=== PATIENT | female | born 1980 | race Caucasian/White ===

== ENCOUNTER 2017-10-20 18:08 | Emergency (ER) | payer OTHER ==
[2017-10-20 18:19] VITALS: RESP 18
[2017-10-20] MEDS ORDERED: LIDOCAINE VISCOUS 2% 15 ML CUP MUCOUS MEM ONE (19:22)
--- NOTE | 2017-10-20 19:56 | XR ---
EXAMINATION TYPE: XR soft tissue neck DATE OF EXAM: 10/20/2017 COMPARISON: NONE HISTORY: Sore throat TECHNIQUE: 2 views FINDINGS: Epiglottis is normal. Tonsils are within normal limits. Subglottic trachea appears normal. Prevertebral soft tissues appear normal. IMPRESSION: Normal cervical soft tissue exam.
[2017-10-20] MEDS ORDERED: KETOROLAC 60 MG/2 ML VIAL IM STA (20:30)
[2017-10-20] MEDS ORDERED: HYDROcodone/APAP 10-325MG 1 EACH TAB PO ONE (20:30)
--- NOTE | 2017-10-20 20:52 | ED ---
ENT HPI - General Chief complaint: ENT Stated complaint: Sore Throat/Mouth Sores Time Seen by Provider: 10/20/17 18:22 Source: patient Mode of arrival: ambulatory Limitations: no limitations - History of Present Illness Initial comments: 37-year-old female presenting for evaluation of sore throat since Tuesday. She states that she went to an urgent care this week where she had a negative strep swab and was given a prescription for antibiotics. She has been taking the Augmentin as prescribed however her sore throat continues. She's been trying [id number] medications without relief in her symptoms. She states symptoms are worse with eating foods and there is no alleviating factors. There are no other associated symptoms. She denies shortness of breath or sensation of throat closure. - Related Data Home Medications Medication Instructions Recorded Confirmed Amoxic-Pot Clav 500-125 mg 1 tab PO TID 10/20/17 10/20/17 [Augmentin 500-125 mg] Lidocaine Viscous 2% [Xylocaine 10 ml PO Q2H PRN 10/20/17 10/20/17 Viscous] predniSONE 40 mg PO DAILY 10/20/17 10/20/17 Previous Rx's Medication Instructions Recorded HYDROcodone/APAP 5-325MG [[place] 1 - 2 tab PO Q6HR PRN #7 tab 10/20/17 5-325] Ibuprofen [Motrin] 800 mg PO Q6HR #30 tab 10/20/17 Allergies Allergy/AdvReac Type Severity Reaction Status Date / Time No Known Allergies Allergy Verified 10/20/17 18:43 Review of Systems ROS Statement: Those systems with pertinent positive or pertinent negative responses have been documented in the HPI. ROS Other: All systems not noted in ROS Statement are negative. Constitutional: Denies: fever, chills, night sweats Eyes: Denies: eye pain, vision change ENT: Reports: throat pain. Denies: ear pain, dental pain, epistaxis, congestion Respiratory: Denies: cough, dyspnea Cardiovascular: Denies: chest pain, palpitations Endocrine: Denies: fatigue, polydipsia, polyuria Gastrointestinal: Denies: abdominal pain, nausea, vomiting Genitourinary: Denies: urgency, dysuria Musculoskeletal: Denies: back pain, arthralgia, myalgia Skin: Denies: rash, lesions Neurological: Denies: headache, weakness Psychiatric: Denies: anxiety, depression Hematological/Lymphatic: Denies: easy bleeding, easy bruising Past Medical History Past Medical History: No Reported History History of Any Multi-Drug Resistant Organisms: None Reported Past Surgical History: No Surgical Hx Reported Past Psychological History: No Psychological Hx Reported Smoking Status: Current every day smoker Past Alcohol Use History: Occasional Past Drug Use History: None Reported General Exam Limitations: no limitations General appearance: alert, in no apparent distress Head exam: Present: atraumatic, normocephalic, normal inspection Eye exam: Present: normal appearance, PERRL, EOMI. Absent: scleral icterus, conjunctival injection, periorbital swelling ENT exam: Present: mucous membranes moist, other (erythematous posterior oropharynx). Absent: normal exam, normal oropharynx Neck exam: Present: normal inspection. Absent: tenderness, meningismus, lymphadenopathy Respiratory exam: Present: normal lung sounds bilaterally. Absent: respiratory distress, wheezes, rales, rhonchi, stridor Cardiovascular Exam: Present: regular rate, normal rhythm, normal heart sounds. Absent: systolic murmur, diastolic murmur, rubs, gallop, clicks GI/Abdominal exam: Present: soft, normal bowel sounds. Absent: distended, tenderness, guarding, rebound, rigid Rectal exam: Present: deferred Extremities exam: Present: normal inspection, full ROM, normal capillary refill. Absent: tenderness, pedal edema, joint swelling, calf tenderness Back exam: Present: normal inspection Neurological exam: Present: alert, oriented X3, CN II-XII intact Psychiatric exam: Present: normal affect, normal mood Skin exam: Present: warm, dry, intact, normal color. Absent: rash Course Vital Signs 10/20/17 18:14 Temperature 99.0 F Pulse Rate 90 Respiratory 18 Rate Blood Pressure 145/90 O2 Sat by Pulse 99 Oximetry Medical Decision Making - Medical Decision Making 37-year-old female presented for evaluation of sore throat since Tuesday. She is in the middle of an Augmentin antibiotic course and states that she was also given a prednisone burst. On physical examination she is in no apparent distress however she states that she has sore throat and on inspection she has an erythematous oropharynx without occlusion of the airway. She has tenderness externally to the neck however on the minor lymphadenopathy is noted. Remainder of the physical exam is benign. Rapid strep is negative and culture sent. Soft tissue x-ray shows no acute abnormalities. Patient given by mouth lidocaine and had some improvement in her symptoms. She was further given IM Toradol and [place]. Informed of all results and that should be discharged with instructions to follow with her primary care physician and she is further given return instructions. The patient acknowledged an understanding of all information provided and agreed with this plan of care. - Lab Data Lab Results 10/20/17 Range/Units 18:39 Group A Strep Rapid Negative (Negative) Disposition Clinical Impression: Pharyngitis, Sore throat Disposition: HOME SELF-CARE Condition: Stable Instructions: Pharyngitis (ED), Tonsillitis (ED) Additional Instructions: Please use medication as discussed. Please follow up with family doctor if symptoms have not improved over the next two days. Please return to the emergency room if your symptoms increase or worsen or for any other concerns. Prescriptions: HYDROcodone/APAP 5-325MG [[place] 5-325] 1 - 2 tab PO Q6HR PRN #7 tab PRN Reason: Analgesia Ibuprofen [Motrin] 800 mg PO Q6HR #30 tab Referrals: None,Stated [Primary Care Provider] - 1-2 days Time of Disposition: 20:54
[2017-10-20 21:16] VITALS: BP 123/84; PULSE 85; TEMP 98.3
== END 2017-10-20 21:15 | disposition home or self-care (01) ==
LOC: EC 18:08
DX: J02.9 Acute pharyngitis, unspecified (principal); F17.200 Nicotine dependence, unspecified, uncomplicated; Z79.51 Long term (current) use of inhaled steroids
CPT/HCPCS: 87081; 87430; 70360; 99283; 96372; J1885

== ENCOUNTER → 2020-10-21 | Outpatient (CLI) | payer OTHER | END | disposition home or self-care (01) | LOC: LABWHC1 15:42 | PROVIDERS: ATTEND Family Medicine | DX: Z20.828 Contact with and (suspected) exposure to other viral communicable diseases (principal) | CPT/HCPCS: U0003; C9803 ==

== ENCOUNTER → 2021-03-17 | Outpatient (CLI) | payer OTHER | END | disposition home or self-care (01) | LOC: LABWHC1 15:41 | PROVIDERS: ATTEND Family Medicine | DX: Z20.822 Contact with and (suspected) exposure to COVID-19 (principal) | CPT/HCPCS: U0003; C9803 ==

== ENCOUNTER → 2021-03-31 | Outpatient (CLI) | payer OTHER ==
--- NOTE | 2021-03-31 17:28 | XR ---
EXAMINATION TYPE: XR chest 1V DATE OF EXAM: 03/31/2021 COMPARISON: NONE HISTORY: Cough. TECHNIQUE: Single frontal view of the chest is obtained. FINDINGS: There is no focal air space opacity, pleural effusion, or pneumothorax seen. The cardiac silhouette size is within normal limits. The osseous structures are intact. IMPRESSION: No acute process.
== END | disposition home or self-care (01) ==
LOC: RADXRMAIN 16:57
PROVIDERS: ATTEND Nurse Practitioner Family
DX: R05 Cough (principal)
CPT/HCPCS: 71045

== ENCOUNTER → 2021-04-14 | Outpatient (CLI) | payer OTHER ==
[2021-04-14 19:05] LABS: Basophils # (A) 0.05 X 10*3/uL (0.00-0.10); Basophils % (A) 0.5 %; Eosinophils # (A) 0.13 X 10*3/uL (0.04-0.35); Eosinophils % (A) 1.2 %; HCT 44.3 % (37.2-46.3); HGB 14.4 g/dL (12.0-15.0); Lymphocytes # (A) 1.65 X 10*3/uL (0.90-5.00); Lymphocytes % (A) 15.5 %; MCHC 32.5 g/dL (32.0-37.0); MCV 95.3 fL (80.0-97.0); Mean Platelet Volume 12.1 fL (9.5-12.2); Monocytes # (A) 0.97 X 10*3/uL (0.20-1.00); Monocytes % (A) 9.1 %; Neutrophils # (A) 7.81 X 10*3/uL (1.80-7.70); Neutrophils % (A) 73.2 %; Platelet Count 270 X 10*3/uL (140-440); RBC 4.65 X 10*6/uL (4.10-5.20); RDW 12.8 % (11.5-14.5); WBC 10.66 X 10*3/uL (4.50-10.00)
[2021-04-14 21:04] LABS: ALT 15 U/L (8-44); AST 16 U/L (13-35); African American GFR (CKD) 106.1 (60.0-200.0); Alkaline Phosphatase 50 U/L (41-126); C Reactive Protein <0.4 mg/dL (0.0-0.8); Calcium 9.4 mg/dL (8.7-10.3); Chloride 106 mmol/L (96-109); Glucose 127 mg/dL (70-110); LDH 152 U/L (120-246); Non-African American GFR(CKD) 91.6 (60.0-200.0); Potassium 4.8 mmol/L (3.5-5.5); Sodium 136 mmol/L (135-145); Total Bilirubin 0.3 mg/dL (0.3-1.2); Total Protein 6.8 g/dL (6.2-8.2)
[2021-04-14 21:14] LABS: Ferritin 19.5 ng/mL (10.0-291.0)
== END | disposition home or self-care (01) ==
LOC: LABWHC1 14:24
PROVIDERS: ATTEND Family Medicine
DX: R50.9 Fever, unspecified (principal)
CPT/HCPCS: 36415; 80053; 82728; 83615; 84145; 85025; 85379; 86140

== ENCOUNTER → 2021-04-20 | Outpatient (CLI) | payer OTHER ==
--- NOTE | 2021-04-21 08:58 | MM ---
Reason for exam: screening (asymptomatic). Baseline mammogram. History: Family history of breast cancer in paternal grandmother and breast cancer in maternal grandmother at age 60. Physical Findings: Nurse did not find any significant physical abnormalities on exam. MG Screening Mammo w CAD Bilateral CC and MLO view(s) were taken. XCCL view(s) were taken of the right breast. The breast tissue is extremely dense which could obscure a lesion on mammography. These results were verbally communicated with the patient and result sheet given to the patient on 04/20/21. ASSESSMENT: Benign, BI-RAD 2 RECOMMENDATION: Routine screening mammogram of both breasts in 1 year.
== END | disposition home or self-care (01) ==
LOC: RADMAMWWP 15:02
PROVIDERS: ATTEND Family Medicine
DX: Z12.31 Encounter for screening mammogram for malignant neoplasm of breast (principal); Z80.3 Family history of malignant neoplasm of breast
CPT/HCPCS: 77067

== ENCOUNTER → 2021-06-02 | Outpatient (CLI) | payer OTHER ==
--- NOTE | 2021-06-02 10:07 | CT ---
EXAMINATION TYPE: CT chest w con DATE OF EXAM: 06/02/2021 COMPARISON: NONE HISTORY: Cough, shortness of breath, difficulty breathing CT DLP: 177.3 mGycm. Automated Exposure Control for Dose Reduction was Utilized. TECHNIQUE: CT scan of the thorax is performed following with IV Contrast, patient injected with 100 mL of Isovue 300. FINDINGS: LUNGS: The lungs are grossly clear, there is no concerning parenchymal mass or nodule identified. No suspicious focal consolidation or groundglass opacity. There is no pleural effusion or pneumothorax seen. The tracheobronchial tree is patent. MEDIASTINUM: There are no greater than 1 cm hilar or mediastinal lymph nodes. No cardiomegaly or pe ricardial effusion is seen. OTHER: Slight scoliotic curvature or positioning upper thoracic spine. IMPRESSION: No acute or chronic pulmonary process.
== END | disposition home or self-care (01) ==
LOC: RADCTMAIN 08:03
PROVIDERS: ATTEND Family Medicine
DX: R05 Cough (principal); R06.02 Shortness of breath; R06.89 Other abnormalities of breathing
CPT/HCPCS: 71260; Q9967

== ENCOUNTER 2024-09-07 05:43 | Day surgery (SDC) | payer SELFPAY ==
[2024-09-06 09:06] VITALS: BMI 22.6
[2024-09-07] MEDS ORDERED: SCOPOLAMINE 1 MG/72 HR PATCH TRANSDERM ONE (05:56)
[2024-09-07] MEDS: IV FLUID CONTINUATION 1,000 ML IV ONE (06:23)
[2024-09-07] MEDS: LACTATED RINGERS 1,000 ML IV SCH (06:37)
[2024-09-07] MEDS: DEXAMETHASONE SOD PHOSPHATE 4 MG/ML 1 ML VIAL IV ONE (06:38)
[2024-09-07] MEDS: ONDANSETRON 4 MG/2 ML VIAL IVP ONE (06:38)
[2024-09-07] MEDS: fentaNYL (PF) 50 MCG/ML 2 ML AMP IVP STA (06:49)
[2024-09-07] MEDS: MIDAZOLAM 2 MG/2 ML VIAL IV PRN (06:49)
[2024-09-07] MEDS ORDERED: MIDAZOLAM 2 MG/2 ML VIAL ONE (07:25)
[2024-09-07] MEDS ORDERED: PROPOFOL 10 MG/ML 20 ML VIAL IV ONE (07:25)
[2024-09-07] MEDS ORDERED: ROPIVACAINE 5 MG/ML 30 ML VIAL ONE (07:25)
[2024-09-07] MEDS ORDERED: SODIUM CHLORIDE 0.9% (PF) 10 ML VIAL ONE (07:25)
[2024-09-07] MEDS ORDERED: fentaNYL (PF) 50 MCG/ML 2 ML AMP ONE (07:25)
[2024-09-07] MEDS ORDERED: LIDOCAINE 1% INJ 10MG/ML (20 ML MDV) ONE (07:25)
[2024-09-07] MEDS: ceFAZolin 1,000 MG in SODIUM CHLORIDE 0.9% 1,000 ML IRRIGATION ONE (07:30)
--- NOTE | 2024-09-07 08:06 | P.ANPRN ---
Procedure Note - Anesthesia - Nerve Block Performed Right Popliteal Single Time Out Performed: Yes (0649) Date of Procedure: 09/07/24 Procedure Start Time: 06:50 Procedure Stop Time: 06:54 Location of Patient: PreOp Indication: Acute Post-Operative Pain, Requested by Surgeon Specifically requested for management of pain by DrRoberto: Porter Carson Sedation Type: Sedate with meaningful contact maintained Preparation: Sterile Prep Position: Left Lateral Catheter: None Needle Types: Pajunk Needle Gauge: 21 Ultrasound used to visualize needle placement: Yes Ultrasound used to observe medication spread: Yes Injectate: 0.5% Ropivacaine (see comment for volume) (15cc+10cc nacl pf) Blood Aspirated: No Pain Paresthesia on Injection Noted: No Resistance on Injection: Normal Image Stored and Saved: Yes Events: Uneventful and Well Tolerated
--- NOTE | 2024-09-07 08:07 | P.ANPRN ---
Procedure Note - Anesthesia - Nerve Block Performed Right Adductor Canal Single Time Out Performed: Yes (0649) Date of Procedure: 09/07/24 Procedure Start Time: 06:55 Procedure Stop Time: 06:59 Location of Patient: PreOp Indication: Acute Post-Operative Pain, Requested by Surgeon Specifically requested for management of pain by DrRoberto: Porter Carson Sedation Type: Sedate with meaningful contact maintained Preparation: Sterile Prep Position: Supine Catheter: None Needle Types: Pajunk Needle Gauge: 21 Ultrasound used to visualize needle placement: Yes Ultrasound used to observe medication spread: Yes Injectate: 0.5% Ropivacaine (see comment for volume) (15cc +10cc nacl pf) Blood Aspirated: No Pain Paresthesia on Injection Noted: No Resistance on Injection: Normal Image Stored and Saved: Yes Events: Uneventful and Well Tolerated
[2024-09-07] MEDS: HYDROmorphone 0.5 MG/0.5 ML SYRINGE IVP PRN (08:55)
--- NOTE | 2024-09-07 09:02 | P.OP ---
Date of Procedure: 09/07/24 Preoperative Diagnosis: 1. Displaced lateral malleolar fracture right ankle 2. Ruptured syndesmosis right ankle 3. Possible deltoid ligament rupture right ankle Postoperative Diagnosis: 1. Displaced lateral malleolar fracture right ankle 2. Ruptured syndesmosis right ankle Procedure(s) Performed: 1. Open reduction with internal fixation right lateral malleolar fracture 2. Open reduction internal fixation right syndesmotic rupture Implants: Mcdaniels anatomic lateral malleolar plate with locking and nonlocking screws Arthgreg booker Anesthesia: JOSE Surgeon: Porter Carson Estimated Blood Loss (ml): 2 Pathology: none sent Condition: stable Disposition: PACU Description of Procedure: Prior to the patient being brought to the operating room, anesthesia administered a nerve block on the right lower extremity. The patient was brought into the operative room and placed on table in supine position. Timeout was taken to confirm correct patient identifiers, correct laterality of surgery, and correct procedure. Once all staff in the room were in agreement with the timeout, the patient was induced and placed under general anesthesia. A well- padded tourniquet was placed on the right thigh and a wedge underneath the right hip to internally rotate the right leg. The right leg was then prepped and draped in usual manner. The leg was exsanguinated with an Esmarch bandage and then the tourniquet was inflated to 250 mmHg. Inches directed over the lateral malleolus where a straight linear incision was made along the midline. The incision was deepened under the subcutaneous tissue careful to identify, avoid, and retract any neurovascular structures and cauterize any bleeding vessels. Dissection was carried down to level of the periosteum. A linear periosteal incision was madetissues were reflected anteriorly and posteriorly to expose the fracture. The soft tissue and hematoma were evacuated from between the fracture fragments. Bone reduction forceps were utilized to rotate and bring the fracture back into alignment. A Mcdaniels precontoured lateral malleolar plate was then positioned and adjusted under fluoroscopy until it was aligned appropriately. The plate was then temporarily fixated. A nonlocking screw and a Locking screw were placed in the most proximal 2 holes of the plate. Distal locking screws were then placed into the lateral malleolus. Drilling for the screws is done under direct fluoroscopic visualization so that the drill bit did not enter the lateral gutter of the ankle joint. The distal screw was a compression screw to contour the plate and the other 2 screws were locking screws. Fluoroscopic imaging showed that the plate was properly aligned and the fracture well reduced. Under live fluoroscopic visualization external rotation and eversion of the ankle were done to assess the syndesmosis. It was noted that there was excessive motion of the syndesmosis. the decision was made for syndesmotic fixation and stabilization. Through the appropriate hole in the plate, a drill hole was made from lateral to medial, with slight anterior angulation through all cortices. An Arthrex tight rope was inserted until the medial button was clear of the cortex of the tibia. The button was deployed manipulated until late flat against the medial side of the tibia. The overnight cashier was removed and then the ankle held in maximal dorsiflexed position, and the lateral button was tightened against the plate. Stress testing was performed again under fluoroscopy, and it showed that there was no instability of syndesmosis and no abnormal gapping of the medial gutter. The wound is then thoroughly irrigated with antibiotic saline. Deep closure was done with 2-0 Vicryl. Subcu closure was done with 4-0 Monocryl. Skin closure was done with 4-0 Stratafix in a running subcuticular manner. Dermal glue and steri-strips were applied over the incision. There was a large medial wound that was irrigatd and covered with a silver impregnated foam dressing. An Arthrex jumpstart dressing was placed over the lateral incision and then a bulky dry dressings applied to the right ankle. The tourniquet was released and capillary refill return to all digits on the right foot. Then the patient was placed in a well-padded, well molded posterior mold/sugar tong splint. The ankle was held in neutral dorsiflexion and slight inversion as it dried. Once the splint was dried, anesthesia was reversed and the patient was taken recovery with vital signs stable.
--- NOTE | 2024-09-07 09:04 | FL ---
EXAMINATION TYPE: FL guidance operating room, XR ankle complete RT DATE OF EXAM: 09/07/2024 Comparison: No prior is available. Clinical History: 43-year-old female pain after ankle injury, ORIF ANKLE IN OR Findings: 3 intraoperative images are provided. These show lateral plate and screw fixation of the distal fibul a as well as transsyndesmotic tight rope fixation. Ankle mortise appears congruent and alignment is g rossly anatomic. FLUOROSCOPY Fluoroscopy time of 37 seconds was used during right ankle ORIF. 3 image/s document/s the procedure. .80955 Gycm2 DAP dose Impression: Intraoperative imaging during placement of distal fibular plate and screw fixation as well as transsy ndesmotic tight rope fixation. Gross anatomic alignment. [facility], , 09/07/2024 9:02 AM
[2024-09-07 09:06] VITALS: RESP 14; TEMP 97.2
[2024-09-07 10:01] VITALS: BP 133/87; PULSE 84
== END 2024-09-07 10:28 | disposition home or self-care (01) ==
LOC: OR 05:43
PROVIDERS: ATTEND Podiatrist
CPT/HCPCS: 64445; 64447; 81025

== ENCOUNTER 2024-10-24 15:15 | Observation (INO) | payer OTHER ==
--- NOTE | 2024-10-24 15:53 | ED ---
Recheck HPI - General Chief Complaint: Recheck/Abnormal Lab/Rx Stated Complaint: R leg infection Time Seen by Provider: 10/24/24 15:25 Source: patient, RN notes reviewed, old records reviewed Mode of arrival: ambulatory Limitations: no limitations - History of Present Illness Initial Comments: This is a 44-year-old female to the ER for right lower extremity pain increasing ulcer pain and swelling foot swelling foot pain with redness and swelling. Kasandra whitt has recent history of ankle surgery and had gradual healing and improved pain until last week where the pain and swelling increased, patient's ulcer does appear to be continually improving over the right ankle but she does feel feverish MD Complaint: wound re-check -: week(s) Returns Today for: Called Because of Abnormal Lab/Test, needs IV antibiotics, persistent/worsening pain related to initial visit Symptoms Since Prior Visit: worsening pain, worsening swelling, worsening redness, fever Associated Symptoms: none Treatments Prior to Arrival: other - Related Data Home Medications Medication Instructions Recorded Confirmed diphenhydrAMINE HCL [Benadryl] 25 mg PO DAILY 09/06/24 10/24/24 Previous Rx's Medication Instructions Recorded Doxycycline Hyclate 100 mg PO BID #20 tab 10/25/24 HYDROcodone/APAP 5-325MG [[place] 1 tab PO Q4HR PRN #30 tab 10/25/24 5-325] Nicotine 21Mg/24Hr Patch [Habitrol] 1 patch TRANSDERM DAILY #3 patch 10/25/24 Allergies Allergy/AdvReac Type Severity Reaction Status Date / Time No Known Allergies Allergy Verified 10/24/24 16:09 Review of Systems ROS Statement: Those systems with pertinent positive or pertinent negative responses have been documented in the HPI. ROS Other: All systems not noted in ROS Statement are negative. 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 History of Any Multi-Drug Resistant Organisms: None Reported Past Surgical History: Orthopedic Surgery Past Anesthesia/Blood Transfusion Reactions: No Reported Reaction Past Psychological History: No Psychological Hx Reported Smoking Status: Current every day smoker Past Alcohol Use History: Rare Past Drug Use History: Marijuana - Past Family History Mother Family Medical History: No Reported History General Exam Limitations: no limitations General appearance: alert, in no apparent distress, anxious Head exam: Present: atraumatic, normocephalic, normal inspection Eye exam: Present: normal appearance, PERRL, EOMI. Absent: scleral icterus, conjunctival injection, periorbital swelling ENT exam: Present: normal exam, mucous membranes moist Neck exam: Present: normal inspection. Absent: tenderness, meningismus, lymphadenopathy Respiratory exam: Present: normal lung sounds bilaterally. Absent: respiratory distress, wheezes, rales, rhonchi, stridor Cardiovascular Exam: Present: normal rhythm, tachycardia, normal heart sounds. Absent: systolic murmur, diastolic murmur, rubs, gallop, clicks GI/Abdominal exam: Present: soft, normal bowel sounds. Absent: distended, tenderness, guarding, rebound, rigid Extremities exam: Present: normal inspection, full ROM, normal capillary refill. Absent: tenderness, pedal edema, joint swelling, calf tenderness Back exam: Present: normal inspection Neurological exam: Present: alert, oriented X3, CN II-XII intact Psychiatric exam: Present: normal affect, normal mood Skin exam: Present: warm, dry, intact, normal color. Absent: rash Course Vital Signs 10/24/24 10/24/24 15:21 18:15 Temperature 98.6 F 98.1 F Pulse Rate 131 H 108 H Respiratory 20 22 Rate Blood Pressure 153/94 148/89 O2 Sat by Pulse 99 100 Oximetry - Reevaluation(s) Reevaluation #1: 10/24/24 16:07 Records reviewed Reevaluation #2: 10/24/24 17:41 Patient has improved pain control here in the ER Reevaluation #3: 10/24/24 17:41 Patient informed of results and questions answered Reevaluation #4: Was pt. sent in by a medical professional or institution (, PA, SPRING UP SUPERVISOR, urgent care, hospital, or care home...) When possible be specific @ -no Did you speak to anyone other than the patient for history (EMS, parent, family, police, friend...)? What history was obtained from this source @ -no Did you review nursing and triage notes (agree or disagree)? Why? @ -agree Are old charts reviewed (outside hosp., previous admission, EMS record, old EKG, old radiological studies, urgent care reports/EKG's, care home records)? Report findings @ -yes Differential Diagnosis (chest pain, altered mental status, abdominal pain women, abdominal pain men, vaginal bleeding, weakness, fever, dyspnea, syncope, headache, dizziness, GI bleed, back pain, seizure, CVA, palpatations, mental health, musculoskeletal)? @ -prior EKG interpreted by me (3pts min.). @ -no X-rays interpreted by me (1pt min.). @ -yes negative for acute disease CT interpreted by me (1pt min.). @ -no U/S interpreted by me (1pt. min.). @ -yes negative for acute disease What testing was considered but not performed or refused? (CT, X-rays, U/S, labs)? Why? @ -none What meds were considered but not given or refused? Why? @ -none Did you discuss the management of the patient with other professionals (professionals i.e. , PA, SPRING UP SUPERVISOR, lab, RT, psych nurse, social media marketing analyst, conventional mortgage underwriter, teacher, supply requirements officer, rn case management)? Give summary @ -no Was smoking cessation discussed for >3mins.? @ -no Was critical care preformed (if so, how long)? @ -no Were there social determinants of health that impacted care today? How? (Homelessness, low income, unemployed, alcoholism, drug addiction, transportation, low edu. Level, literacy, decrease access to med. care, [place] [facility], rehab)? @ -none Was there de-escalation of care discussed even if they declined (Discuss DNR or withdrawal of care, Hospice)? DNR status @ -no What co-morbidities impacted this encounter? (DM, HTN, Smoking, COPD, CAD, Cancer, CVA, ARF, Chemo, Hep., AIDS, mental health diagnosis, sleep apnea, morbid obesity)? @ -none Was patient admitted / discharged? Hospital course, mention meds given and route, prescriptions, significant lab abnormalities, going to OR and other pertinent info. @ - 44 female with postoperative pain and infection, patient will be admitted for IV antibiotics Admitted Undiagnosed new problem with uncertain prognosis? @ -no Drug Therapy requiring intensive monitoring for toxicity (Heparin, Nitro, Insulin, Cardizem)? @ -no Were any procedures done? @ -no Diagnosis/symptom? @ -Ankle infection cellulitis Acute, or Chronic, or Acute on Chronic? @ -Acute Uncomplicated (without systemic symptoms) or Complicated (systemic symptoms)? @ -Complicated Side effects of treatment? @ -no Exacerbation, Progression, or Severe Exacerbation? @ -exacerbation Poses a threat to life or bodily function? How? (Chest pain, USA, OR, pneumonia, PE, COPD, DKA, ARF, appy, cholecystitis, CVA, Diverticulitis, Homicidal, Suicidal, threat to staff... and all critical care pts) @ -yes with significant postoperative infection Reevaluation #5: Differential Fever: Pneumonia, viral URI, endocarditis, myocarditis, pericarditis, otitis, sinusitis, peritonsillar Abscess, retropharyngeal Abscess, epiglottitis, perito nitis, appendicitis, Keri cystitis, diverticulitis, hepatitis, colitis, UTI, PID, TOA, pyelonephritis, prostatitis, epididymitis, meningitis, encephalitis, pulmonary embolism, CVA, thyroid storm, pancreatitis, adrenal crisis, cavernous sinus thrombosis, this is not meant to be an all-inclusive list. - Consultations Consultation #1: With [facility] to admit this patient Medical Decision Making - Medical Decision Making 44 female with postoperative pain and infection, patient will be admitted for IV antibiotics - Lab Data Result diagrams: 10/25/24 08:16 10/25/24 08:16 Lab Results 10/24/24 10/24/24 10/24/24 Range/Units 16:35 16:35 16:35 WBC 10.8 H (3.8-10.6) k/uL RBC 4.39 (3.80-5.40) m/uL Hgb 12.4 (11.4-16.0) gm/dL Hct 39.0 (34.0-46.0) % MCV 88.9 (80.0-100.0) fL MCH 28.3 (25.0-35.0) pg MCHC 31.8 (31.0-37.0) g/dL RDW 14.8 (11.5-15.5) % Plt Count 308 (150-450) k/uL MPV 9.1 Neutrophils % 74 % Lymphocytes % 17 % Monocytes % 5 % Eosinophils % 2 % Basophils % 0 % Neutrophils # 8.0 H (1.3-7.7) k/uL Lymphocytes # 1.8 (1.0-4.8) k/uL Monocytes # 0.5 (0-1.0) k/uL Eosinophils # 0.2 (0-0.7) k/uL Basophils # 0.0 (0-0.2) k/uL PT 10.7 (10.0-12.5) sec INR 1.0 (<1.2) APTT 23.8 (22.0-30.0) sec Sodium (137-145) mmol/L Potassium (3.5-5.1) mmol/L Chloride (98-107) mmol/L Carbon Dioxide (22-30) mmol/L Anion Gap mmol/L BUN (7-17) mg/dL Creatinine (0.52-1.04) mg/dL Est GFR (CKD-EPI)AfAm (>60 ml/min/1.73 sqM) Est GFR (CKD-EPI)NonAf (>60 ml/min/1.73 sqM) Glucose (74-99) mg/dL Plasma Lactic Acid German 0.8 (0.7-2.0) mmol/L Calcium (8.4-10.2) mg/dL Phosphorus (2.5-4.5) mg/dL Magnesium (1.6-2.3) mg/dL Total Bilirubin (0.2-1.3) mg/dL AST (14-36) U/L ALT (4-34) U/L Alkaline Phosphatase (38-126) U/L Troponin I (0.000-0.034) ng/mL C-Reactive Protein (<1.0) mg/dL Total Protein (6.3-8.2) g/dL Albumin (3.5-5.0) g/dL Salicylates mg/dL Acetaminophen ug/mL Serum Alcohol mg/dL 10/24/24 10/24/24 Range/Units 16:35 17:03 WBC (3.8-10.6) k/uL RBC (3.80-5.40) m/uL Hgb (11.4-16.0) gm/dL Hct (34.0-46.0) % MCV (80.0-100.0) fL MCH (25.0-35.0) pg MCHC (31.0-37.0) g/dL RDW (11.5-15.5) % Plt Count (150-450) k/uL MPV Neutrophils % % Lymphocytes % % Monocytes % % Eosinophils % % Basophils % % Neutrophils # (1.3-7.7) k/uL Lymphocytes # (1.0-4.8) k/uL Monocytes # (0-1.0) k/uL Eosinophils # (0-0.7) k/uL Basophils # (0-0.2) k/uL PT (10.0-12.5) sec INR (<1.2) APTT (22.0-30.0) sec Sodium 135 L (137-145) mmol/L Potassium 3.7 (3.5-5.1) mmol/L Chloride 110 H (98-107) mmol/L Carbon Dioxide 22 (22-30) mmol/L Anion Gap 3 mmol/L BUN 11 (7-17) mg/dL Creatinine 0.54 (0.52-1.04) mg/dL Est GFR (CKD-EPI)AfAm >90 (>60 ml/min/1.73 sqM) Est GFR (CKD-EPI)NonAf >90 (>60 ml/min/1.73 sqM) Glucose 85 (74-99) mg/dL Plasma Lactic Acid German (0.7-2.0) mmol/L Calcium 8.4 (8.4-10.2) mg/dL Phosphorus 2.5 (2.5-4.5) mg/dL Magnesium 1.7 (1.6-2.3) mg/dL Total Bilirubin 0.3 (0.2-1.3) mg/dL AST 20 (14-36) U/L ALT 15 (4-34) U/L Alkaline Phosphatase 64 (38-126) U/L Troponin I <0.012 (0.000-0.034) ng/mL C-Reactive Protein 1.9 H (<1.0) mg/dL Total Protein 6.0 L (6.3-8.2) g/dL Albumin 3.5 (3.5-5.0) g/dL Salicylates <1.0 mg/dL Acetaminophen <10.0 ug/mL Serum Alcohol <10 mg/dL - EKG Data -: EKG Interpreted by Me (EKG is sinus 99 MD 142 QRS 99 QTc 414) - Radiology Data Radiology results: report reviewed (Ultrasound right lower extremity negative for DVT, x-ray negative for acute traumatic injury), image reviewed Disposition Clinical Impression: Postoperative infection, Cellulitis of right foot, Foot ulcer, right Disposition: ADMITTED IP TO THIS HOSP Condition: Fair Is patient prescribed a controlled substance at d/c from ED?: No Time of Disposition: 17:40
[2024-10-24] MEDS ORDERED: VANCOMYCIN IV PER PHARMACY 1 EACH MISC MISCELLANE PRN (15:55)
[2024-10-24] MEDS: ONDANSETRON 4 MG/2 ML VIAL IVP STA (16:41)
[2024-10-24] MEDS: MORPHINE SULFATE 4 MG/ML SYRINGE IV STA (16:42)
[2024-10-24] MEDS: SODIUM CHLORIDE 0.9% 1,000 ML IV STA ×2 (16:43→18:03)
[2024-10-24 16:47] LABS: Basophils % (A) 0 %; Eosinophils # (A) 0.2 k/uL (0-0.7); Eosinophils % (A) 2 %; HGB 12.4 gm/dL (11.4-16.0); Lymphocytes # (A) 1.8 k/uL (1.0-4.8); Lymphocytes % (A) 17 %; MCH 28.3 pg (25.0-35.0); MCHC 31.8 g/dL (31.0-37.0); MCV 88.9 fL (80.0-100.0); Mean Platelet Volume 9.1; Monocytes # (A) 0.5 k/uL (0-1.0); Monocytes % (A) 5 %; Neutrophils % (A) 74 %; Platelet Count 308 k/uL (150-450); RBC 4.39 m/uL (3.80-5.40); RDW 14.8 % (11.5-15.5); WBC 10.8 k/uL (3.8-10.6)
[2024-10-24 16:59] LABS: Partial Thromboplastin Time 23.8 sec (22.0-30.0); Prothrombin Time 10.7 sec (10.0-12.5)
[2024-10-24] MEDS: HYDROmorphone 1 MG/ML 1 ML SYRINGE IVP STA (17:02)
[2024-10-24] MEDS: LORazepam 2 MG/ML INJ IV STA (17:02)
[2024-10-24] MEDS ORDERED: NALOXONE 0.4 MG/ML 1 ML VIAL IV PRN (17:39)
[2024-10-24] MEDS ORDERED: ONDANSETRON 4 MG/2 ML VIAL IVP PRN (17:39)
[2024-10-24 18:04] LABS: ALT 15 U/L (4-34); AST 20 U/L (14-36); Acetaminophen <10.0 ug/mL; African American GFR (CKD) >90 (>60 ml/min/1.73 sqM); Albumin 3.5 g/dL (3.5-5.0); Alcohol <10 mg/dL; Alkaline Phosphatase 64 U/L (38-126); Anion Gap 3 mmol/L; Blood Urea Nitrogen 11 mg/dL (7-17); C Reactive Protein 1.9 mg/dL (<1.0); Calcium 8.4 mg/dL (8.4-10.2); Carbon Dioxide 22 mmol/L (22-30); Chloride 110 mmol/L (98-107); Glucose 85 mg/dL (74-99); Magnesium 1.7 mg/dL (1.6-2.3); Non-African American GFR(CKD) >90 (>60 ml/min/1.73 sqM); Phosphorus 2.5 mg/dL (2.5-4.5); Potassium 3.7 mmol/L (3.5-5.1); Salicylate <1.0 mg/dL; Sodium 135 mmol/L (137-145); Total Bilirubin 0.3 mg/dL (0.2-1.3)
[2024-10-24] MEDS: SODIUM CHLORIDE 0.9% 1,000 ML IV SCH (18:11)
[2024-10-24] MEDS: VANCOMYCIN 1,250 MG in SODIUM CHLORIDE 0.9% 250 ML IVPB STA (18:14)
--- NOTE | 2024-10-24 18:19 | XR ---
EXAMINATION TYPE: XR ankle complete RT DATE OF EXAM: 10/24/2024 6:03 PM COMPARISON: None CLINICAL INDICATION: Female, 44 years old with history of pain; [facility] TECHNIQUE: XR ankle complete RT; ankle is imaged in frontal, lateral and oblique projections. FINDINGS/IMPRESSION: Soft tissue edema around the ankle with hardware in place. Hardware appears intact. Syndesmotic ancho r is in place. No additional acute fractures definitively visualized. Correlate for cellulitis. [facility], , 10/24/2024 6:16 PM
--- NOTE | 2024-10-24 18:52 | US ---
EXAMINATION TYPE: US venous doppler duplex LE RT DATE OF EXAM: 10/24/2024 6:20 PM COMPARISON: NONE CLINICAL INDICATION: Female, 44 years old with history of pain; Patient states right leg pain after c ar accident that occurred a few weeks ago. No hx dvt. Patient not on thinners, TECHNIQUE: The lower extremity deep venous system is examined utilizing real time linear array sonog vangie with graded compression, color doppler sonography, and spectral doppler. SIDE PERFORMED: Right FINDINGS: VESSELS IMAGED: Common Femoral Vein Deep Femoral Vein Greater Saphenous Vein * Femoral Vein Popliteal Vein Small Saphenous Vein * Proximal Calf Veins (* superficial vessels) Right Leg: Negative for DVT, Color Doppler imaging shows patency of the vessels. Spectral waveforms are within normal limits. Distal femoral vein compression deferred due to patient pain IMPRESSION: No ultrasound evidence for deep venous thrombosis. [facility], , 10/24/2024 6:49 PM
[2024-10-24] MEDS: HYDROmorphone 1 MG/ML 1 ML SYRINGE IVP PRN (19:04)
[2024-10-24] MEDS: LORazepam 0.5 MG TAB PO PRN (20:52)
[2024-10-24] MEDS: NICOTINE 21MG/24HR PATCH TRANSDERM SCH (20:52)
[2024-10-24 20:56] LABS: Amphetamine Screen,Urine Detected (NotDetected); Barbiturate Screen,Urine Not Detected (NotDetected); Benzodiazepines Screen,Urine Detected (NotDetected); Cocaine Screen,Urine Detected (NotDetected); Methadone Screen, Urine Not Detected (NotDetected); Opiate Screen,Urine Detected (NotDetected); Oxycodone Screen, Urine Not Detected (NotDetected); Phencyclidine Screen,Urine Not Detected (NotDetected); Tricyclic Antidepressant,Urine Not Detected (NotDetected); Urn Cannabinoid Scrn Detected (NotDetected)
[2024-10-25] MEDS: VANCOMYCIN 1,250 MG in SODIUM CHLORIDE 0.9% 250 ML IVPB SCH (01:15)
[2024-10-25 07:41] VITALS: BP 147/91; PULSE 72; RESP 16; TEMP 97.7
[2024-10-25] MEDS: PANTOPRAZOLE 40 MG/10 ML VIAL IV SCH (08:11)
[2024-10-25 08:51] LABS: Basophils % (A) 0 %; Eosinophils # (A) 0.3 k/uL (0-0.7); Eosinophils % (A) 4 %; HCT 36.7 % (34.0-46.0); HGB 11.7 gm/dL (11.4-16.0); Lymphocytes # (A) 1.9 k/uL (1.0-4.8); Lymphocytes % (A) 23 %; MCH 28.8 pg (25.0-35.0); MCHC 31.8 g/dL (31.0-37.0); MCV 90.5 fL (80.0-100.0); Mean Platelet Volume 9.2; Monocytes # (A) 0.4 k/uL (0-1.0); Monocytes % (A) 5 %; Neutrophils # (A) 5.6 k/uL (1.3-7.7); Neutrophils % (A) 66 %; Platelet Count 293 k/uL (150-450); RBC 4.05 m/uL (3.80-5.40); RDW 14.8 % (11.5-15.5); WBC 8.5 k/uL (3.8-10.6)
[2024-10-25 09:03] LABS: ALT 14 U/L (4-34); AST 18 U/L (14-36); African American GFR (CKD) >90 (>60 ml/min/1.73 sqM); Albumin 3.3 g/dL (3.5-5.0); Albumin/Globulin Ratio 1.4; Alkaline Phosphatase 56 U/L (38-126); Anion Gap 4 mmol/L; Blood Urea Nitrogen 8 mg/dL (7-17); Calcium 8.5 mg/dL (8.4-10.2); Carbon Dioxide 26 mmol/L (22-30); Chloride 107 mmol/L (98-107); Globulin 2.4 g/dL; Glucose 94 mg/dL (74-99); Magnesium 1.8 mg/dL (1.6-2.3); Non-African American GFR(CKD) >90 (>60 ml/min/1.73 sqM); Phosphorus 3.6 mg/dL (2.5-4.5); Potassium 3.9 mmol/L (3.5-5.1); Sodium 137 mmol/L (137-145); Total Bilirubin 0.2 mg/dL (0.2-1.3); Total Protein 5.7 g/dL (6.3-8.2)
[2024-10-25] MEDS: ACETAMINOPHEN TAB 325 MG TAB PO PRN (09:49)
--- NOTE | 2024-10-25 12:13 | P.CNOR ---
History of Present Illness - HPI Consult date: 10/25/24 Consult reason: other History of present illness: Patient is 44 year old female seen at bedside today. She is about 6 weeks post op from ORIF right distal fibula and syndesmosis repair per Dr. Carson. She noted increased swelling, pain, and wound issues 2 days ago. She states that she had some fevers as well. She presented to ED yesterday and was admitted for further eval and treatment. She feels improved today. No Fevers. She denies numbness or calf pain. She has been on IV Vancomycin. She desires to be discharged to home. Review of Systems All systems: negative Constitutional: Denies chills, Denies fever Eyes: denies blurred vision, denies pain Ears, nose, mouth and throat: Denies headache, Denies sore throat Cardiovascular: Denies chest pain, Denies shortness of breath Respiratory: Denies cough Gastrointestinal: Denies abdominal pain, Denies diarrhea, Denies nausea, Denies vomiting Genitourinary: Denies dysuria, Denies hematuria Musculoskeletal: Denies myalgias Integumentary: Denies pruritus, Denies rash Neurological: Denies numbness, Denies weakness Psychiatric: Denies anxiety, Denies depression Endocrine: Denies fatigue, Denies weight change 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 Past Drug Use History: Marijuana - Past Family History Mother Family Medical History: No Reported History Medications and Allergies Home Medications Medication Instructions Recorded Confirmed Type diphenhydrAMINE HCL [Benadryl 25 mg PO DAILY 09/06/24 10/24/24 History Allergy] Doxycycline Hyclate 100 mg PO BID #20 tab 10/25/24 Rx HYDROcodone/APAP 5-325MG [[place] 1 tab PO Q4HR PRN #30 tab 10/25/24 Rx 5-325] Allergies Allergy/AdvReac Type Severity Reaction Status Date / Time No Known Allergies Allergy Verified 10/24/24 16:09 Physical Examination Surgical wound at lateral asoect of right ankle appears to be benign. It is not hot to touch, no erythema or fluid collection. Wound at medial aspect of right ankle appears to healing with minimal erythema, no drainage or bleeding. It is not hot to touch. NVI, Calf is SNT, Results - Labs Labs: Abnormal Lab Results - Last 24 Hours (Table) 10/24/24 10/24/24 10/24/24 Range/Units 16:35 17:03 20:30 WBC 10.8 H (3.8-10.6) k/uL Neutrophils # 8.0 H (1.3-7.7) k/uL Sodium 135 L (137-145) mmol/L Chloride 110 H (98-107) mmol/L C-Reactive Protein 1.9 H (<1.0) mg/dL Total Protein 6.0 L (6.3-8.2) g/dL Albumin (3.5-5.0) g/dL Urine Opiates Screen Detected H (NotDetected) Ur Amphetamines Screen Detected H (NotDetected) U Benzodiazepines Scrn Detected H (NotDetected) Urine Cocaine Screen Detected H (NotDetected) U Marijuana (THC) Screen Detected H (NotDetected) 10/25/24 Range/Units 08:16 WBC (3.8-10.6) k/uL Neutrophils # (1.3-7.7) k/uL Sodium (137-145) mmol/L Chloride (98-107) mmol/L C-Reactive Protein (<1.0) mg/dL Total Protein 5.7 L (6.3-8.2) g/dL Albumin 3.3 L (3.5-5.0) g/dL Urine Opiates Screen (NotDetected) Ur Amphetamines Screen (NotDetected) U Benzodiazepines Scrn (NotDetected) Urine Cocaine Screen (NotDetected) U Marijuana (THC) Screen (NotDetected) H & H 10/24/24 10/25/24 Range/Units 16:35 08:16 Hgb 12.4 11.7 (11.4-16.0) gm/dL Hct 39.0 36.7 (34.0-46.0) % Coagulation 10/24/24 Range/Units 16:35 INR 1.0 (<1.2) Result Diagrams: 10/25/24 08:16 10/25/24 08:16 - Diagnostic results Ankle/Foot x-ray: report reviewed, image reviewed Assessment and Plan (1) Cellulitis of right foot Narrative/Plan: Patient was also seen with Dr. Roberts. He agrees patient may be discharged to home on oral antibiotics. I advised on elevation and wound care. She is to f/u in office with Dr. Carson. She may be discharged from orthopedic standpoint. Current Visit: Yes Status: Acute Priority: Medium Code(s): L03.115 - CELLULITIS OF RIGHT LOWER LIMB SNOMED Code(s): [id number] Time with Patient: Less than 30
--- NOTE | 2024-10-25 12:38 | P.HPIM ---
History of Present Illness Patient is a pleasant 44 years old female who presents with a right heel wound. Postop infection is suspected She has right heel wound with her orthopedic team secondary to displaced malleolus fracture status post ORIF on 10/[address] De Jesus. On admission she denies any other new complaint as below She is afebrile, vitals stable, she is mildly tachycardic probably related to pain WBC is 10.8, rest of labs were unremarkable CRP is mildly elevated at 1.9 Urine drug screen is positive Ultrasound of the right leg is negative for DVT Right ankle x-ray showing soft tissue edema around the ankle with hardware in place EKG showing sinus rhythm at [address]-T changes Patient was started on IV vancomycin. This morning patient has been evaluated by orthopedic team and ID team. After that bedside nurse page me that patient's wants to leave soon as possible for joining her family for Thanksgiving celebration. Review of Systems Review of systems CONSTITUTIONAL: No fever, no malaise, no fatigue. HEENT: No recent visual problems or hearing problems. Denied any sore throat. CARDIOVASCULAR: No orthopnea, PND, no palpitations, no syncope. PULMONARY: No shortness of breath, no cough, no hemoptysis. GASTROINTESTINAL: No diarrhea, no nausea, no vomiting, no abdominal pain. Normoactive bowel sounds. NEUROLOGICAL: No headaches, no weakness, no numbness. HEMATOLOGICAL: Denies any bleeding or petechiae. GENITOURINARY: Denies any burning micturition, frequency, or urgency. MUSCULOSKELETAL/RHEUMATOLOGICAL: Denies any joint pain, swelling, or any muscle pain. ENDOCRINE: Denies any polyuria or polydipsia. 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 Past Drug Use History: Marijuana - Past Family History Mother Family Medical History: No Reported History Medications and Allergies Home Medications Medication Instructions Recorded Confirmed Type diphenhydrAMINE HCL [Benadryl] 25 mg PO DAILY 09/06/24 10/24/24 History Doxycycline Hyclate 100 mg PO BID #20 tab 10/25/24 Rx HYDROcodone/APAP 5-325MG [[place] 1 tab PO Q4HR PRN #30 tab 10/25/24 Rx 5-325] Nicotine 21Mg/24Hr Patch [Habitrol] 1 patch TRANSDERM DAILY #3 patch 10/25/24 Rx Allergies Allergy/AdvReac Type Severity Reaction Status Date / Time No Known Allergies Allergy Verified 10/24/24 16:09 Physical Exam Vitals: Vital Signs Temp Pulse Pulse Resp BP BP Pulse Ox 10/25/24 07:25 97.7 F 72 16 147/91 98 10/25/24 00:56 97.5 F L 109 H 19 147/78 97 10/24/24 18:52 98.0 F 98 20 148/95 94 L 10/24/24 18:15 98.1 F 108 H 22 148/89 100 10/24/24 15:21 98.6 F 131 H 20 153/94 99 Intake and Output 10/24/24 10/25/24 10/25/24 22:59 06:59 14:59 Intake Total 1000 Balance 1000 Intake: Intake, IV Titration 1000 Amount Sodium Chloride 0.9% 1, 750 000 ml @ 75 mls/hr IV . [id number] [facility] Rx#:[id number] Vancomycin 1,250 mg In 250 Sodium Chloride 0.9% 250 ml @ 125 mls/hr IVPB Q8H [facility] Rx#:[id number] Other: Voiding Method Toilet Toilet # Voids 2 Weight 63.503 kg GENERAL: The patient is alert and oriented x3, not in any acute distress. Well developed, well nourished. HEENT: Pupils are round and equally reacting to light. EOMI. No scleral icterus. No conjunctival pallor. Normocephalic, atraumatic. No pharyngeal erythema. No thyromegaly. CARDIOVASCULAR: S1 and S2 present. No murmurs, rubs, or gallops. PULMONARY: Chest is clear to auscultation, no wheezing , no crackles. ABDOMEN: Soft, nontender, nondistended, normoactive bowel sounds. No palpable organomegaly. MUSCULOSKELETAL: No joint swelling or deformity. -EXTREMITIES: No cyanosis, clubbing, or pedal edema. Right ankle wound with dressing in place, rest of exam is deferred to surgery team NEUROLOGICAL: Gross neurological examination did not reveal any focal deficits. SKIN: No rashes. no petechiae. Results CBC & Chem 7: 10/25/24 08:16 10/25/24 08:16 Labs: Abnormal Lab Results - Last 24 Hours (Table) 10/24/24 10/24/24 10/24/24 Range/Units 16:35 17:03 20:30 WBC 10.8 H (3.8-10.6) k/uL Neutrophils # 8.0 H (1.3-7.7) k/uL Sodium 135 L (137-145) mmol/L Chloride 110 H (98-107) mmol/L C-Reactive Protein 1.9 H (<1.0) mg/dL Total Protein 6.0 L (6.3-8.2) g/dL Albumin (3.5-5.0) g/dL Urine Opiates Screen Detected H (NotDetected) Ur Amphetamines Screen Detected H (NotDetected) U Benzodiazepines Scrn Detected H (NotDetected) Urine Cocaine Screen Detected H (NotDetected) U Marijuana (THC) Screen Detected H (NotDetected) 10/25/24 Range/Units 08:16 WBC (3.8-10.6) k/uL Neutrophils # (1.3-7.7) k/uL Sodium (137-145) mmol/L Chloride (98-107) mmol/L C-Reactive Protein (<1.0) mg/dL Total Protein 5.7 L (6.3-8.2) g/dL Albumin 3.3 L (3.5-5.0) g/dL Urine Opiates Screen (NotDetected) Ur Amphetamines Screen (NotDetected) U Benzodiazepines Scrn (NotDetected) Urine Cocaine Screen (NotDetected) U Marijuana (THC) Screen (NotDetected) Thrombosis Risk Factor Assmnt - Choose All That Apply Any of the Below Risk Factors Present?: Yes Each Factor Represents 1 point: Age 41-60 years Other Risk Factors: No Other congenital or acquired thrombophilia - If yes, enter type in comment: No Thrombosis Risk Factor Assessment Total Risk Factor Score: 1 Thrombosis Risk Factor Assessment Level: Low Risk Assessment and Plan Assessment: Right heel surgical wound infection, with no fever or leukocytosis or sepsis. Patient had displaced malleolus fracture status post ORIF on 09/07 Nicotine dependence Plan: Patient already cleared for discharge by orthopedic team, confirmed with staff Patient already cleared for discharge by ID team on oral doxycycline, confirmed by staff. Antibiotics has been sent to the pharmacy already Patient and family at bedside are eager to be discharged. No other new complaint Problems and management plan were discussed with the patient and he verbalized understanding and acceptance Patient was found stable and can be discharged home in guarded prognosis however he needs follow-up as an outpatient. Patient was instructed to follow up with PCP within one week and patient agrees Patient was instructed to follow-up with Dr. Osman her orthopedic doctor in [address] Roberts from ID in 1 week and she agrees. Time spent more than 35 minutes
--- NOTE | 2024-10-25 13:00 | P.CONS ---
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 Carson about 6 weeks ago and that incision is on the lateral side of the right ankle which is currently healed patient presenting to the ER concerning for increasing swelling pain to the right medial ankle wound area over the last 2 days and also complaining of some low-grade fever patient describes the pain to be mostly throbbing mild to moderate intense without any radiation he denies any foul-smelling drainage with the symptoms the patient was evaluated by the ER physician on arrival to the ER patient was afebrile and no fever have recorded subsequently patient did have mild tachycardia but no hypotension or hypoxemia patient did have white count of 10.8 initially with a left shift with repeat white count is 8.5 creatinine 0.54 electrolytes are normal liver enzymes are normal urine drug screen is positive for opiates amphetamines benzodiazepine cocaine and marijuana serum alcohol was less than 10 patient did have ankle x-ray soft tissue edema around the ankle with hardware in place hardware appears intact correlate for cellulitis the patient also have a venous Doppler study that was negative for DVT she was started on vancomycin infectious disease was consulted for further management of antibiotic therapy at the time of evaluation this morning patient mention overall improvement to the wound of the right medial ankle area and the pictures were reviewed with the patient as well as with the PA for orthopedics patient is feeling better wants to go home. Review of Systems Positive point and negatives has been mentioned in the HPI, complete review of systems was performed and all other systems are negative 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, had preeclampsia with 24yrs ago History of Any Multi-Drug Resistant Organisms: None Reported Past Surgical History: Orthopedic Surgery Past Anesthesia/Blood Transfusion Reactions: No Reported Reaction Past Psychological History: No Psychological Hx Reported Smoking Status: Current every day smoker Past Alcohol Use History: Rare Additional Past Alcohol Use History / Comment(s): Smokes 1 ppd X20 yrs. Past Drug Use History: Marijuana - Past Family History Mother Family Medical History: No Reported History Medications and Allergies Home Medications Medication Instructions Recorded Confirmed Type diphenhydrAMINE HCL [Benadryl] 25 mg PO DAILY 09/06/24 10/24/24 History Doxycycline Hyclate 100 mg PO BID #20 tab 10/25/24 Rx HYDROcodone/APAP 5-325MG [Chase 1 tab PO Q4HR PRN #30 tab 10/25/24 Rx 5-325] Nicotine 21Mg/24Hr Patch [Habitrol] 1 patch TRANSDERM DAILY #3 patch 10/25/24 Rx Allergies Allergy/AdvReac Type Severity Reaction Status Date / Time No Known Allergies Allergy Verified 10/24/24 16:09 Physical Exam Vitals: Vital Signs Temp Pulse Pulse Resp BP BP Pulse Ox 10/25/24 07:25 97.7 F 72 16 147/91 98 10/25/24 00:56 97.5 F L 109 H 19 147/78 97 10/24/24 18:52 98.0 F 98 20 148/95 94 L 10/24/24 18:15 98.1 F 108 H 22 148/89 100 10/24/24 15:21 98.6 F 131 H 20 153/94 99 Intake and Output 10/24/24 10/25/24 10/25/24 22:59 06:59 14:59 Intake Total 1000 Balance 1000 Intake: Intake, IV Titration 1000 Amount Sodium Chloride 0.9% 1, 750 000 ml @ 75 mls/hr IV . [id number] [facility] Rx#:[id number] Vancomycin 1,250 mg In 250 Sodium Chloride 0.9% 250 ml @ 125 mls/hr IVPB Q8H [facility] Rx#:[id number] Other: Voiding Method Toilet Toilet # Voids 2 Weight 63.503 kg GENERAL DESCRIPTION: Middle-aged female lying in bed, no distress. No tachypnea or accessory muscle of respiration use. HEENT: Shows Pallor , no scleral icterus. Oral mucous membrane is dry. NECK: Trachea central, no thyromegaly. LUNGS: Unlabored breathing. Clear to auscultation anteriorly. No wheeze or crackle. HEART: S1, S2, regular rate and rhythm. No loud murmur ABDOMEN: Soft, no tenderness , guarding or rigidity, no organomegaly EXTREMITIES: Right lateral surgical incision is currently healed with no swelling redness or warmth the patient did have wound on the medial aspect of the right ankle area overall base looks clean there was no surrounding redness or any purulent drainage SKIN: No rash, no masses palpable. NEUROLOGICAL: The patient is awake, alert, oriented x3, mood and affect normal. Results CBC & Chem 7: 10/25/24 08:16 10/25/24 08:16 Labs: Abnormal Lab Results - Last 24 Hours (Table) 10/24/24 10/24/24 10/24/24 Range/Units 16:35 17:03 20:30 WBC 10.8 H (3.8-10.6) k/uL Neutrophils # 8.0 H (1.3-7.7) k/uL Sodium 135 L (137-145) mmol/L Chloride 110 H (98-107) mmol/L C-Reactive Protein 1.9 H (<1.0) mg/dL Total Protein 6.0 L (6.3-8.2) g/dL Albumin (3.5-5.0) g/dL Urine Opiates Screen Detected H (NotDetected) Ur Amphetamines Screen Detected H (NotDetected) U Benzodiazepines Scrn Detected H (NotDetected) Urine Cocaine Screen Detected H (NotDetected) U Marijuana (THC) Screen Detected H (NotDetected) 10/25/24 Range/Units 08:16 WBC (3.8-10.6) k/uL Neutrophils # (1.3-7.7) k/uL Sodium (137-145) mmol/L Chloride (98-107) mmol/L C-Reactive Protein (<1.0) mg/dL Total Protein 5.7 L (6.3-8.2) g/dL Albumin 3.3 L (3.5-5.0) g/dL Urine Opiates Screen (NotDetected) Ur Amphetamines Screen (NotDetected) U Benzodiazepines Scrn (NotDetected) Urine Cocaine Screen (NotDetected) U Marijuana (THC) Screen (NotDetected) Assessment and Plan (1) Cellulitis of right foot Current Visit: Yes Status: Acute Priority: Medium Code(s): L03.115 - CELLULITIS OF RIGHT LOWER LIMB SNOMED Code(s): 21538994481731711 (2) Foot ulcer, right Current Visit: Yes Status: Acute Code(s): L97.519 - NON-PRS CHRONIC ULCER OTH PRT RIGHT FOOT W UNSP SEVERITY SNOMED Code(s): 579044288 Plan: 1patient with a chronic wound on the medial aspect of the right ankle area, presented to hospital with increasing pain and swelling to the wound but no purulent drainage patient did have x-ray did not show any fracture no fever has been recorded during this admission and the patient mention or improvement to the right medial foot wound with vancomycin and seem to be insisting on going home. The incision on the right lateral ankle area is completely healed with no swelling redness clinically doubt postoperative infection 2we will recommend local wound care with dry Aquacel silver dressing followed by Jimmy wrap to be changed q. 48-hour 3vancomycin while inpatient however can be transition to oral doxycycline 100 mg twice a day for 10 days on discharge Plan of care were discussed with the orthopedic PA on the floor We will follow on clinical condition and cultures to further adjust medication if needed Thank you for this consultation we will follow the patient along with you Dictation was produced using [employer] software. please excuse any grammatical, word or spelling errors.
[2024-10-25] MEDS ORDERED: VANCOMYCIN TROUGH DUE 1 EACH MISC MISCELLANE ONE (17:00)
== END 2024-10-25 14:07 | disposition home or self-care (01) ==
LOC: EC 15:15 → 4SSUR 17:40 → INTOOBSV 17:40 → 4SSUR 18:19 → UNDODISIN 10-25 14:07
PROVIDERS: ADMIT Hospitalist; ATTEND Hospitalist
DX: T81.41XA Infection following a procedure, superficial incisional surgical site, initial encounter (principal); L03.115 Cellulitis of right lower limb; L97.519 Non-pressure chronic ulcer of other part of right foot with unspecified severity; F17.200 Nicotine dependence, unspecified, uncomplicated; Z79.899 Other long term (current) drug therapy; Y83.8 Other surgical procedures as the cause of abnormal reaction of the patient, or of later complication, without mention of misadventure at the time of the procedure
CPT/HCPCS: 96376 ×2; 96366 ×2; 96367; 96375 ×2; 96365; 99285; 36415; 93005; 80053 ×2; 83605; 83735 ×2; 84100 ×2; 84484; 85025 ×2; 85610; 85730; 86140; 87040; 80306; 80143; 80179; 73610; 93971; G0378 ×2; G0480; S4990 ×2; J3370 ×2; J2060; J2270; J2405; J0696; J1171 ×2; J2470; 80320